=== PATIENT | male | born 1990 | race African-American/Black ===

== ENCOUNTER 2020-07-29 08:05 | Inpatient (IN) | payer MEDICAID, OTHER ==
[~2020-07-29] VITALS: Ht 190.5 cm; Wt 81.6 kg
[2020-07-29] MEDS ORDERED: SODIUM CHLORIDE 0.9% 2,000 ML IV ONE (08:30)
[2020-07-29] MEDS ORDERED: ONDANSETRON HCL 4 MG/2 ML VIAL IV ONE (09:00)
[2020-07-29] MEDS ORDERED: InsuLIN REG 1unit/0.01ml Soln (100units/ml) IV ONE (09:00)
[2020-07-29 09:07] LABS: Eosinophils # (auto) 0 10 ^3/uL (0-0.8); Mean Corpuscular Volume 77.4 fL (80.0-100.0); Neutrophils # (auto) 10.4 10 ^3/uL (1.6-8.6)
[2020-07-29 09:09] LABS: Basophils # (auto) 0.1 10 ^3/uL (0-0.2); Basophils % (auto) 0.4 % (0.0-2.0); Hematocrit 54.7 % (41.0-53.0); Hemoglobin 16.6 g/dL (13.5-17.5); Lymphocytes # (auto) 1.1 10 ^3/uL (0.4-5.4); Lymphocytes % (auto) 9.5 % (10.0-50.0); Mean Corpuscular Hemoglobin 23.5 pg (28.0-32.0); Mean Corpuscular Hgb Conc. 30.3 g/dL (32.0-36.0); Monocytes # (auto) 0.4 10 ^3/uL (0-1.3); Monocytes % (auto) 3.3 % (0.0-12.0); Neutrophils % (auto) 86.8 % (37.0-80.0); Nucleated Red Blood Cells % 0.1 %; Red Blood Cells 7.07 10^6/uL (4.5-5.90); Red Cell Distribution Width 15.7 % (11.8-14.3)
[2020-07-29] MEDS ORDERED: INSULIN LANTUS (GLARGINE) 1 /0.01ml (100units/ml) SC ONE (09:30)
[2020-07-29] MEDS ORDERED: InsuLIN R (HUMAN) 100 UNITS in SODIUM CHL 0.9% 99 ML IV SCH (09:30)
[2020-07-29] MEDS ORDERED: DEXTROSE (50%) 50ML SYRG IV PRN (09:30)
[2020-07-29 09:37] LABS: Chloride 98 mmol/L (98-107); Sodium 132 mmol/L (136-145)
[2020-07-29 09:38] LABS: Anion Gap 25 (5-15)
[2020-07-29 09:39] LABS: Alanine Aminotransferase 50 U/L (16-61); Alkaline Phosphatase 141 U/L (45-117); Aspartate Aminotransferase 8 U/L (15-37); BUN/Creatinine Ratio 12.5; Blood Urea Nitrogen 22 mg/dL (7-18); Carbon Dioxide 9 mmol/L (21-32); GFR African American 60 mL/min; GFR Non-African American 50 mL/min; Glucose 468 mg/dL (74-106); Potassium 6.4 mmol/L (3.5-5.1)
[2020-07-29 09:40] LABS: Albumin 4.5 g/dL (3.4-5.0); Bilirubin, Total 0.4 mg/dL (0.2-1.0); Calcium 9.2 mg/dL (8.5-10.1); Magnesium 2.4 mg/dL (1.6-2.6); Total Protein 8.7 g/dL (6.4-8.2)
[2020-07-29] MEDS ORDERED: SODIUM BICARBONATE 8.4 % INJ 50ML VIAL IV ONE ×2 (09:45→11:00)
[2020-07-29] MEDS: SODIUM CHLORIDE 0.9% 1,000 ML IV SCH ×2 (10:00→11:30)
[2020-07-29 10:15] LABS: Eosinophils # (auto) 0 10 ^3/uL (0-0.8); Lymphocytes # (auto) 1.1 10 ^3/uL (0.4-5.4); Nucleated Red Blood Cells % 0.1 %
[2020-07-29 10:18] LABS: Basophils # (auto) 0.1 10 ^3/uL (0-0.2); Basophils % (auto) 0.4 % (0.0-2.0); Hematocrit 54.3 % (41.0-53.0); Hemoglobin 16.7 g/dL (13.5-17.5); Lymphocytes % (auto) 7.5 % (10.0-50.0); Mean Corpuscular Hemoglobin 23.6 pg (28.0-32.0); Mean Corpuscular Hgb Conc. 30.7 g/dL (32.0-36.0); Mean Corpuscular Volume 77.1 fL (80.0-100.0); Monocytes # (auto) 0.4 10 ^3/uL (0-1.3); Neutrophils % (auto) 89.1 % (37.0-80.0); Red Blood Cells 7.05 10^6/uL (4.5-5.90); Red Cell Distribution Width 15.7 % (11.8-14.3); White Blood Cell 14.6 10^3/uL (4.4-10.8)
[2020-07-29] MEDS: ACCU-CHEK COMFORT CURVE STRIP VI SCH ×7 (10:46→21:00)
[2020-07-29] MEDS ORDERED: SODIUM CHLORIDE 0.9% 3,000 ML IV ONE (11:00)
[2020-07-29 11:02] LABS: Calcium 9.2 mg/dL (8.5-10.1); Magnesium 2.5 mg/dL (1.6-2.6)
[2020-07-29 11:05] LABS: BUN/Creatinine Ratio 11.7; Phosphorus 5.9 mg/dL (2.5-4.90)
[2020-07-29 11:10] LABS: Potassium 7.7 mmol/L (3.5-5.1)
[2020-07-29] MEDS ORDERED: CALCIUM GLUC 4.65meq/50ml D5AE 50 ML IV ONE (11:15)
[2020-07-29] MEDS ORDERED: MORPHINE SULFATE INJECTION 2 MG/ML SYRG IV PRN ×2 (12:15)
[2020-07-29] MEDS ORDERED: ALBUTEROL SULF 2.5 MG/0.5ML(0.5%) NEB SOLN NEB ONE (12:15)
[2020-07-29] MEDS ORDERED: NITROGLYCERIN 0.4 MG SL TAB SL PRN (12:15)
[2020-07-29] MEDS ORDERED: ONDANSETRON HCL 4 MG/2 ML VIAL IV PRN (12:15)
[2020-07-29] MEDS ORDERED: SOD CHL 0.45% 1,000 ML IV SCH (12:15)
[2020-07-29] MEDS ORDERED: SODIUM BICARB 50ML SYR 100 ML in SODIUM CHLORIDE 0.9% 1,000 ML IV ONE (12:30)
[2020-07-29] MEDS ORDERED: SODIUM BICARBONATE 50ML VIAL 100 ML in SOD CHL 0.45% 1,000 ML IV ONE (12:45)
[2020-07-29] MEDS ORDERED: SODIUM BICARB 50ML SYR 100 ML in D5W 5% 1,000 ML IV ONE (13:15)
[2020-07-29] MEDS ORDERED: SODIUM ZIRCONIUM CYCL 10 GM PAK PO ONE (13:15)
[2020-07-29] MEDS ORDERED: SODIUM CHLORIDE 0.9% 1,000 ML IV SCH ×2 (13:30→15:30)
[2020-07-29] MEDS ORDERED: METF-372 PO (14:41)
[2020-07-29] MEDS: SODIUM BICARBONATE 50ML VIAL 100 ML in D5W 5% 1,000 ML IV SCH ×2 (15:30→21:20)
[2020-07-29 15:53] LABS: Urine Bacteria NONE SEEN /hpf (None Seen); Urine Blood TRACE /uL (Negative); Urine Mucus FEW (None Seen); Urine Specific Gravity 1.018 (1.001-1.035); Urine WBC <1 /hpf (0 - 3)
[2020-07-29 16:15] LABS: Amphetamine Screen, Urine NEGATIVE (NEGATIVE); Barbiturate Scree,Urine NEGATIVE (NEGATIVE); Benzodiazephine Screen, Urine NEGATIVE (NEGATIVE); Cannabinoid Screen, Urine POSITIVE (NEGATIVE); Cocaine Screen, Urine NEGATIVE (NEGATIVE); Opiate Scree,Urine NEGATIVE (NEGATIVE); Phencyclidine Screen, Urine NEGATIVE (NEGATIVE)
[2020-07-29 16:25] LABS: Calcium 8.3 mg/dL (8.5-10.1); Potassium 4.3 mmol/L (3.5-5.1)
[2020-07-29 16:27] LABS: BUN/Creatinine Ratio 10.4
[2020-07-29 22:57] LABS: Calcium 8.2 mg/dL (8.5-10.1); Potassium 4.8 mmol/L (3.5-5.1)
[2020-07-29 23:00] LABS: BUN/Creatinine Ratio 9.1
[2020-07-30] MEDS ORDERED: POTASSIUM CHL 20MEQ/100ML 100 ML IV PRN
[2020-07-30] MEDS: ACCU-CHEK COMFORT CURVE STRIP VI SCH ×9 (00:13→20:03)
[2020-07-30] MEDS ORDERED: InsuLIN R (HUMAN) 100 UNITS in SODIUM CHL 0.9% 99 ML IV SCH ×2 (02:00→06:30)
[2020-07-30 04:10] LABS: Calcium 8.3 mg/dL (8.5-10.1); Magnesium 1.6 mg/dL (1.6-2.6); Potassium 3.6 mmol/L (3.5-5.1)
[2020-07-30 04:12] LABS: BUN/Creatinine Ratio 7.8; Phosphorus 2.2 mg/dL (2.5-4.90)
[2020-07-30] MEDS: SODIUM BICARBONATE 50ML VIAL 100 ML in D5W 5% 1,000 ML IV SCH (04:59)
[2020-07-30] MEDS ORDERED: SOD CHL 0.45% 1,000 ML IV SCH (08:30)
[2020-07-30] MEDS ORDERED: DEXTROSE (50%) 50ML SYRG IV PRN (08:30)
[2020-07-30 09:49] LABS: CRP High Sensitivity 0.03 mg/dL (< 0.3)
[2020-07-30] MEDS: ENOXAPARIN SOD 40 MG/0.4 ML SYRINGE SC SCH ×2 (10:00→22:03)
[2020-07-30] MEDS: ZINC SULFATE 220mg CAP or TAB PO SCH (10:38)
[2020-07-30] MEDS: CHOLECALCIFEROL (VITD3) 2,000 UNIT CAP/TAB PO SCH (10:39)
[2020-07-30] MEDS: ASCORBIC ACID 1,000 MG TAB PO SCH (10:39)
[2020-07-30] MEDS: INSULIN LANTUS (GLARGINE) 1 /0.01ml (100units/ml) SC SCH (10:39)
[2020-07-30 11:11] LABS: Eosinophils # (auto) 0 10 ^3/uL (0-0.8); Eosinophils % (auto) 0.3 % (0.0-7.0); Mean Corpuscular Hemoglobin 23.5 pg (28.0-32.0); Monocytes # (auto) 0.5 10 ^3/uL (0-1.3); Nucleated Red Blood Cells % 0.1 %; White Blood Cell 6.9 10^3/uL (4.4-10.8)
[2020-07-30 11:14] LABS: Basophils # (auto) 0.1 10 ^3/uL (0-0.2); Basophils % (auto) 0.8 % (0.0-2.0); Hematocrit 42.4 % (41.0-53.0); Lymphocytes # (auto) 1.4 10 ^3/uL (0.4-5.4); Lymphocytes % (auto) 20.1 % (10.0-50.0); Mean Corpuscular Volume 71.1 fL (80.0-100.0); Monocytes % (auto) 7.9 % (0.0-12.0); Neutrophils # (auto) 4.9 10 ^3/uL (1.6-8.6); Neutrophils % (auto) 70.9 % (37.0-80.0); Red Blood Cells 5.97 10^6/uL (4.5-5.90); Red Cell Distribution Width 14.8 % (11.8-14.3)
[2020-07-30 11:15] LABS: Potassium 3.2 mmol/L (3.5-5.1)
[2020-07-30 11:35] LABS: BUN/Creatinine Ratio 7.9; Calcium 8.6 mg/dL (8.5-10.1); Magnesium 2.2 mg/dL (1.6-2.6)
[2020-07-30] MEDS: InsuLIN REG 1unit/0.01ml Soln (100units/ml) SC SCH ×3 (12:45→20:45)
[2020-07-30] MEDS ORDERED: POTASSIUM CHL 20 Meq TABLET PO ONE (14:15)
[2020-07-30 16:00] VITALS: BP 109/45
[2020-07-30 23:37] VITALS: BP 122/88
[2020-07-31] MEDS: InsuLIN REG 1unit/0.01ml Soln (100units/ml) SC SCH ×5 (04:00→16:47)
[2020-07-31] MEDS: ACCU-CHEK COMFORT CURVE STRIP VI SCH ×5 (04:01→16:46)
[2020-07-31 07:30] LABS: Basophils # (auto) 0 10 ^3/uL (0-0.2); Hematocrit 42.7 % (41.0-53.0); Monocytes # (auto) 0.5 10 ^3/uL (0-1.3); Neutrophils # (auto) 1.6 10 ^3/uL (1.6-8.6); White Blood Cell 4.2 10^3/uL (4.4-10.8)
[2020-07-31 07:33] LABS: Basophils % (auto) 0.4 % (0.0-2.0); Eosinophils # (auto) 0 10 ^3/uL (0-0.8); Eosinophils % (auto) 1.2 % (0.0-7.0); Lymphocytes % (auto) 48.1 % (10.0-50.0); Mean Corpuscular Hemoglobin 23.5 pg (28.0-32.0); Mean Corpuscular Hgb Conc. 32.8 g/dL (32.0-36.0); Mean Corpuscular Volume 71.7 fL (80.0-100.0); Neutrophils % (auto) 38.3 % (37.0-80.0); Nucleated Red Blood Cells % 0.3 %; Red Blood Cells 5.95 10^6/uL (4.5-5.90); Red Cell Distribution Width 14.6 % (11.8-14.3)
[2020-07-31 07:39] LABS: Potassium 3.4 mmol/L (3.5-5.1)
[2020-07-31 07:53] LABS: Calcium 8.7 mg/dL (8.5-10.1); Magnesium 2.1 mg/dL (1.6-2.6)
[2020-07-31 08:00] VITALS: BP 111/65
[2020-07-31] MEDS: ZINC SULFATE 220mg CAP or TAB PO SCH (09:04)
[2020-07-31] MEDS: CHOLECALCIFEROL (VITD3) 2,000 UNIT CAP/TAB PO SCH (09:05)
[2020-07-31] MEDS: ENOXAPARIN SOD 40 MG/0.4 ML SYRINGE SC SCH (09:05)
[2020-07-31] MEDS: ASCORBIC ACID 1,000 MG TAB PO SCH (09:05)
[2020-07-31] MEDS: INSULIN LANTUS (GLARGINE) 1 /0.01ml (100units/ml) SC SCH (09:45)
[2020-07-31] MEDS ORDERED: POTASSIUM CHL 20 Meq TABLET PO ONE (12:00)
[2020-07-31] MEDS ORDERED: ASCO10003 PO (13:00)
[2020-07-31] MEDS ORDERED: INSLANTI SC (13:00)
[2020-07-31] MEDS ORDERED: ASPI-378 PO (13:00)
[2020-07-31] MEDS ORDERED: ZINC220T6 PO (13:00)
[2020-07-31] MEDS ORDERED: CHOL1CAP47 PO (13:00)
[2020-07-31] MEDS ORDERED: METF-372 PO (13:00)
[2020-07-31] MEDS: ERGOCALCIFEROL 50,000 UNIT(1.25MG) CAP PO SCH ×2 (13:28→15:02)
[2020-07-31 15:57] VITALS: BP 137/78
== END 2020-07-31 17:10 | disposition home or self-care (01) | DRG 420 ==
LOC: ER 08:05 → TELE 08:06 → TELE-WESTW 07-30 13:10
PROVIDERS: ADMIT Nurse Practitioner Acute Care; ATTEND Internal Medicine
DX: E10.10 Type 1 diabetes mellitus with ketoacidosis without coma (principal); U07.1 COVID-19; N17.0 Acute kidney failure with tubular necrosis; E86.0 Dehydration; E87.5 Hyperkalemia; F20.9 Schizophrenia, unspecified; R65.10 Systemic inflammatory response syndrome (SIRS) of non-infectious origin without acute organ dysfunction; E55.9 Vitamin D deficiency, unspecified; E78.5 Hyperlipidemia, unspecified; F12.90 Cannabis use, unspecified, uncomplicated; J45.909 Unspecified asthma, uncomplicated; N18.9 Chronic kidney disease, unspecified; E10.22 Type 1 diabetes mellitus with diabetic chronic kidney disease; Z86.39 Personal history of other endocrine, nutritional and metabolic disease; Z91.14 Patient's other noncompliance with medication regimen
CPT/HCPCS: 36415; 36600; 71045; 71250; 80048; 80053; 80061; 80164; 80307; 81001; 82010; 82306; 82728; 82805; 82962; 83036; 83605; 83615; 83735; 83930; 84100; 84443; 85025; 85379; 86141; 87040; 87426; 93005; 94640; 96361; 96365; 96366; 96372; 96375; G0378; J0610; J1815; J2405

== ENCOUNTER 2020-08-14 00:33 | Inpatient (IN) | payer MEDICAID ==
[~2020-08-14] VITALS: Ht 182.9 cm; Wt 76.3 kg
[~2020-08-14 00:33] MED LIST: ASCO10003 PO; ASPI-378 PO; CHOL1CAP47 PO; INSLANTI SC; METF-372 PO; ZINC220T6 PO
[2020-08-14] MEDS ORDERED: SODIUM CHLORIDE 0.9% 1,000 ML IV ONE (01:45)
[2020-08-14 02:23] LABS: Eosinophils # (auto) 0 10 ^3/uL (0-0.8); White Blood Cell 12.8 10^3/uL (4.4-10.8)
[2020-08-14 02:27] LABS: Basophils # (auto) 0.1 10 ^3/uL (0-0.2); Basophils % (auto) 0.5 % (0.0-2.0); Hematocrit 53.3 % (41.0-53.0); Hemoglobin 16.4 g/dL (13.5-17.5); Lymphocytes % (auto) 15.3 % (10.0-50.0); Mean Corpuscular Hgb Conc. 30.7 g/dL (32.0-36.0); Mean Corpuscular Volume 78.3 fL (80.0-100.0); Monocytes # (auto) 0.4 10 ^3/uL (0-1.3); Monocytes % (auto) 2.9 % (0.0-12.0); Neutrophils # (auto) 10.4 10 ^3/uL (1.6-8.6); Neutrophils % (auto) 81.3 % (37.0-80.0); Nucleated Red Blood Cells % 0.1 %; Platelet Count (auto) 232 10^3/uL (140-450); Red Blood Cells 6.81 10^6/uL (4.5-5.90); Red Cell Distribution Width 15.9 % (11.8-14.3)
[2020-08-14 02:37] LABS: Partial Thromboplastin Time 23.2 sec (23.0-31.2)
[2020-08-14 02:46] LABS: Albumin 4.1 g/dL (3.4-5.0); Calcium 8.2 mg/dL (8.5-10.1); Potassium 4.9 mmol/L (3.5-5.1)
[2020-08-14 02:49] LABS: BUN/Creatinine Ratio 8.6
[2020-08-14 02:52] LABS: Bilirubin, Total 0.4 mg/dL (0.2-1.0)
[2020-08-14] MEDS ORDERED: DEXTROSE (50%) 50ML SYRG IV PRN ×2 (03:15→06:15)
[2020-08-14] MEDS ORDERED: InsuLIN R (HUMAN) 100 UNITS in SODIUM CHL 0.9% 99 ML IV SCH (03:15)
[2020-08-14] MEDS ORDERED: ONDANSETRON HCL 4 MG/2 ML VIAL IV ONE (03:15)
[2020-08-14] MEDS ORDERED: SODIUM BICARBONATE 50ML VIAL 50 ML in SOD CHL 0.45% 1,000 ML IV ONE (03:15)
[2020-08-14] MEDS ORDERED: SODIUM BICARBONATE 8.4 % INJ 50ML VIAL IV ONE (03:15)
[2020-08-14 03:47] LABS: Urine Bacteria NONE SEEN /hpf (None Seen); Urine Blood TRACE /uL (Negative); Urine Specific Gravity 1.021 (1.001-1.035); Urine WBC <1 /hpf (0 - 3)
[2020-08-14] MEDS ORDERED: InsuLIN REG 1unit/0.01ml Soln (100units/ml) ONE (04:10)
[2020-08-14] MEDS: ACCU-CHEK COMFORT CURVE STRIP VI SCH ×14 (04:30→22:28)
[2020-08-14] MEDS ORDERED: PIPERACILLIN-TAZOB 3.375GM 100 ML IV ONE (05:45)
[2020-08-14] MEDS ORDERED: VANCOMYCIN 1GM/250ML 250 ML IV ONE (05:45)
[2020-08-14] MEDS ORDERED: SODIUM BICARBONATE 50ML VIAL 100 ML in SOD CHL 0.45% 1,000 ML IV SCH (06:15)
[2020-08-14] MEDS ORDERED: MORPHINE SULF INJ 2 MG/ML SYRINGE 1ML IV PRN (06:15)
[2020-08-14] MEDS ORDERED: INSULIN LANTUS (GLARGINE) 1 /0.01ml (100units/ml) SC ONE (06:15)
[2020-08-14] MEDS: InsuLIN R (HUMAN) 100 UNITS in SODIUM CHL 0.9% 99 ML IV SCH ×2 (06:15→22:31)
[2020-08-14] MEDS ORDERED: NITROGLYCERIN 0.4 MG SL TAB SL PRN (06:15)
[2020-08-14] MEDS ORDERED: ONDANSETRON HCL 4 MG/2 ML VIAL IV PRN (06:15)
[2020-08-14 06:34] LABS: Calcium 8.2 mg/dL (8.5-10.1); Potassium 5.2 mmol/L (3.5-5.1)
[2020-08-14] MEDS: cefTRIAXone 1GM/50ML D5W 50 ML IV SCH (10:15)
[2020-08-14] MEDS ORDERED: SODIUM CHLORIDE 0.9% 1,000 ML IV SCH ×2 (10:15→12:15)
[2020-08-14] MEDS: PANTOPRAZOLE 40 MG TAB PO SCH (10:15)
[2020-08-14] MEDS: SODIUM BICARBONATE 50ML VIAL 150 ML in D5W 5% 1,000 ML IV SCH ×2 (11:15→22:17)
[2020-08-14 14:05] LABS: BUN/Creatinine Ratio 8.5; Calcium 8.6 mg/dL (8.5-10.1); Potassium 4.6 mmol/L (3.5-5.1)
[2020-08-14] MEDS: metroNIDAZOLE 500MG/100ML 100 ML IV SCH ×2 (17:13→22:24)
[2020-08-14 20:01] LABS: Calcium 8.1 mg/dL (8.5-10.1); Potassium 3.8 mmol/L (3.5-5.1)
[2020-08-14 20:04] LABS: BUN/Creatinine Ratio 8.3
[2020-08-15] MEDS: ACCU-CHEK COMFORT CURVE STRIP VI SCH ×10 (00:40→17:50)
[2020-08-15 01:40] LABS: BUN/Creatinine Ratio 9.2; Calcium 8.9 mg/dL (8.5-10.1); Potassium 3.1 mmol/L (3.5-5.1)
[2020-08-15] MEDS: metroNIDAZOLE 500MG/100ML 100 ML IV SCH ×3 (06:23→21:40)
[2020-08-15 06:41] LABS: Basophils # (auto) 0 10 ^3/uL (0-0.2); Eosinophils # (auto) 0 10 ^3/uL (0-0.8); Hemoglobin 12.8 g/dL (13.5-17.5); Lymphocytes # (auto) 1.4 10 ^3/uL (0.4-5.4); Monocytes # (auto) 0.4 10 ^3/uL (0-1.3)
[2020-08-15 06:44] LABS: Basophils % (auto) 0.7 % (0.0-2.0); Eosinophils % (auto) 0.2 % (0.0-7.0); Hematocrit 40.1 % (41.0-53.0); Lymphocytes % (auto) 28.1 % (10.0-50.0); Mean Corpuscular Hemoglobin 23.4 pg (28.0-32.0); Mean Corpuscular Hgb Conc. 31.9 g/dL (32.0-36.0); Mean Corpuscular Volume 73.4 fL (80.0-100.0); Monocytes % (auto) 7.1 % (0.0-12.0); Neutrophils # (auto) 3.2 10 ^3/uL (1.6-8.6); Neutrophils % (auto) 63.9 % (37.0-80.0); Nucleated Red Blood Cells % 0.2 %; Platelet Count (auto) 97 10^3/uL (140-450); Red Blood Cells 5.46 10^6/uL (4.5-5.90); Red Cell Distribution Width 14.8 % (11.8-14.3); White Blood Cell 5.1 10^3/uL (4.4-10.8)
[2020-08-15 07:02] LABS: Potassium 3.1 mmol/L (3.5-5.1)
[2020-08-15 07:12] LABS: Albumin 3.2 g/dL (3.4-5.0); BUN/Creatinine Ratio 10.7; Bilirubin, Total 0.7 mg/dL (0.2-1.0); Calcium 8.6 mg/dL (8.5-10.1); Total Protein 6.5 g/dL (6.4-8.2)
[2020-08-15] MEDS: SODIUM BICARBONATE 50ML VIAL 150 ML in D5W 5% 1,000 ML IV SCH (07:22)
[2020-08-15] MEDS ORDERED: INSULIN LANTUS (GLARGINE) 1 /0.01ml (100units/ml) SC ONE (09:30)
[2020-08-15] MEDS ORDERED: SOD CHL 0.9%/ KCL 20MEQ 1,000 ML IV SCH (09:30)
[2020-08-15] MEDS ORDERED: POTASSIUM CHLORIDE 40 MEQ, LIDOCAINE 1% (LOCAL ANESTH.) 4 ML in SODIUM CHL 0.9% 250 ML IV ONE (09:30)
[2020-08-15] MEDS: INSULIN LANTUS (GLARGINE) 1 /0.01ml (100units/ml) SC SCH (10:00)
[2020-08-15] MEDS: cefTRIAXone 1GM/50ML D5W 50 ML IV SCH (11:19)
[2020-08-15] MEDS: PANTOPRAZOLE 40 MG TAB PO SCH (11:32)
[2020-08-15] MEDS ORDERED: DEXTROSE (50%) 50ML SYRG IV PRN (11:45)
[2020-08-15] MEDS ORDERED: POTASSIUM CHL 20 Meq TABLET PO ONE (12:30)
[2020-08-15] MEDS: SODIUM CHLORIDE 0.9% 1,000 ML IV SCH (12:30)
[2020-08-15] MEDS: InsuLIN REG 1unit/0.01ml Soln (100units/ml) SC SCH ×2 (13:00→17:49)
[2020-08-15 22:00] VITALS: BP 119/70
[2020-08-16] MEDS: SODIUM CHLORIDE 0.9% 1,000 ML IV SCH ×2 (01:50→15:10)
[2020-08-16 05:00] VITALS: BP 111/65
[2020-08-16] MEDS: metroNIDAZOLE 500MG/100ML 100 ML IV SCH ×3 (06:35→21:07)
[2020-08-16] MEDS: InsuLIN REG 1unit/0.01ml Soln (100units/ml) SC SCH ×5 (06:45→22:33)
[2020-08-16] MEDS: ACCU-CHEK COMFORT CURVE STRIP VI SCH ×5 (06:46→22:35)
[2020-08-16 09:00] VITALS: BP 116/61
[2020-08-16] MEDS: cefTRIAXone 1GM/50ML D5W 50 ML IV SCH (09:50)
[2020-08-16] MEDS: PANTOPRAZOLE 40 MG TAB PO SCH (09:50)
[2020-08-16] MEDS: INSULIN LANTUS (GLARGINE) 1 /0.01ml (100units/ml) SC SCH (10:00)
[2020-08-16 10:28] LABS: Basophils # (auto) 0 10 ^3/uL (0-0.2); Basophils % (auto) 0.5 % (0.0-2.0); Eosinophils # (auto) 0 10 ^3/uL (0-0.8); Monocytes # (auto) 0.4 10 ^3/uL (0-1.3); Nucleated Red Blood Cells % 0.1 %; Red Cell Distribution Width 14.7 % (11.8-14.3)
[2020-08-16 10:30] LABS: Eosinophils % (auto) 0.6 % (0.0-7.0); Hematocrit 39.3 % (41.0-53.0); Hemoglobin 12.8 g/dL (13.5-17.5); Lymphocytes % (auto) 28.6 % (10.0-50.0); Mean Corpuscular Hemoglobin 23.8 pg (28.0-32.0); Mean Corpuscular Hgb Conc. 32.7 g/dL (32.0-36.0); Mean Corpuscular Volume 72.7 fL (80.0-100.0); Monocytes % (auto) 10.1 % (0.0-12.0); Neutrophils # (auto) 2.1 10 ^3/uL (1.6-8.6); Neutrophils % (auto) 60.2 % (37.0-80.0); Platelet Count (auto) 137 10^3/uL (140-450); White Blood Cell 3.6 10^3/uL (4.4-10.8)
[2020-08-16 10:50] LABS: Potassium 3.1 mmol/L (3.5-5.1)
[2020-08-16 10:54] LABS: BUN/Creatinine Ratio 15.9
[2020-08-16 16:00] VITALS: BP 110/73
[2020-08-16 22:00] VITALS: BP 123/44
[2020-08-17] MEDS: SODIUM CHLORIDE 0.9% 1,000 ML IV SCH (04:30)
[2020-08-17 05:05] VITALS: BP 120/59
[2020-08-17] MEDS: ACCU-CHEK COMFORT CURVE STRIP VI SCH (05:21)
[2020-08-17] MEDS: metroNIDAZOLE 500MG/100ML 100 ML IV SCH (05:21)
[2020-08-17] MEDS: InsuLIN REG 1unit/0.01ml Soln (100units/ml) SC SCH (05:21)
[2020-08-17 07:30] VITALS: BP 111/63
[2020-08-17] MEDS: cefTRIAXone 1GM/50ML D5W 50 ML IV SCH (08:53)
[2020-08-17] MEDS: PANTOPRAZOLE 40 MG TAB PO SCH (08:54)
[2020-08-17] MEDS: INSULIN LANTUS (GLARGINE) 1 /0.01ml (100units/ml) SC SCH (10:20)
[2020-08-17 10:38] VITALS: BP 111/63
== END 2020-08-17 11:45 | disposition home or self-care (01) | DRG 420 ==
LOC: EDBD 00:33 → ER 00:37 → TELE 00:38 → TELE-CENTR 08-15 17:10
PROVIDERS: ADMIT Nurse Practitioner; ATTEND Internal Medicine Nephrology
DX: E11.10 Type 2 diabetes mellitus with ketoacidosis without coma (principal); N17.0 Acute kidney failure with tubular necrosis; R65.10 Systemic inflammatory response syndrome (SIRS) of non-infectious origin without acute organ dysfunction; E86.0 Dehydration; K52.9 Noninfective gastroenteritis and colitis, unspecified; Z20.822 Contact with and (suspected) exposure to COVID-19; E87.5 Hyperkalemia; F12.90 Cannabis use, unspecified, uncomplicated; F20.9 Schizophrenia, unspecified; J45.909 Unspecified asthma, uncomplicated; Z91.14 Patient's other noncompliance with medication regimen; Z83.3 Family history of diabetes mellitus; Z86.16 Personal history of COVID-19
CPT/HCPCS: 36415; 36600; 71045; 71250; 74176; 80048; 80053; 81001; 82010; 82805; 82962; 83735; 83880; 85025; 85610; 85730; 87040; 87426; 96365; 96366; 96367; 96368; 96372; 96375; 96376; 99291; G0378; J0696; J1815; J2001; J2405; J2543; J3490